=== PATIENT | female | born 1995 | race Caucasian/White ===

== ENCOUNTER 2019-07-11 23:03 | Emergency (ER) | payer MEDICAID ==
[~2019-07-11] VITALS: Ht 170.2 cm; Wt 89.5 kg
[2019-07-11 23:10] VITALS: BP 133/90; Ht 170.2 cm; Wt 89.5 kg
[2019-07-11] MEDS ORDERED: ADOXA100 MG PO (23:11)
[2019-07-11] MEDS ORDERED: STROMECTOL 3 MG3 MG PO (23:40)
[2019-07-11] MEDS ORDERED: ZOFRAN ODT4 MG/UDTAB PO (23:41)
== END 2019-07-12 00:01 | disposition home or self-care (01) ==
LOC: D.ER 23:03
DX: B86 Scabies (principal)

== ENCOUNTER 2019-07-15 03:22 | Emergency (ER) | payer MEDICAID ==
[~2019-07-15] VITALS: Ht 170.2 cm; Wt 89.5 kg
[~2019-07-15 03:22] MED LIST: ADOXA100 MG PO; STROMECTOL 3 MG3 MG PO; ZOFRAN ODT4 MG/UDTAB PO
[2019-07-15 03:26] VITALS: Ht 170.2 cm; Wt 89.5 kg
[2019-07-15 04:14] LABS: BASOPHILS 0.1 % (0-2); EOSINOPHILS 1.9 % (0-7); HEMATOCRIT 38.6 % (36.0-48.0); HEMOGLOBIN 13.2 g/dL (12-16); IMMATURE GRANULOCYTES 0.3 % (0-5); LYMPHOCYTES 17.3 % (15-50); MCH 28.4 pg (26.0-34.0); MCHC 34.2 g/dL (31.0-37.0); MEAN PLATELET VOLUME 10.6 fL (7.4-10.4); MONOCYTES 10.7 % (2-11); NEUTROPHILS 69.7 % (40-80); PLATELET COUNT 189 10x3/uL (130-400); RBC 4.65 10x6/uL (4.00-5.40); WBC 8.8 10x3/uL (4.8-10.8)
[2019-07-15 04:28] LABS: ALBUMIN 4.4 g/dL (3.4-5.0); ANION GAP 14.6 mmol/L (8-16); BILIRUBIN - TOTAL 0.55 mg/dL (0.2-1.3); CARBON DIOXIDE 26.3 mmol/L (21.0-32.0); CREATININE - SERUM 1.2 mg/dL (0.6-1.3); PROTEIN - SERUM 6.9 g/dL (6.4-8.2)
[2019-07-15 04:30] LABS: POTASSIUM - SERUM 2.9 mmol/L (3.5-5.1)
[2019-07-15 04:40] LABS: UDS - AMPHET POSITIVE QUAL (NEGATIVE); UDS - BARB NEGATIVE QUAL (NEGATIVE); UDS - BENZO NEGATIVE QUAL (NEGATIVE); UDS - COCAINE NEGATIVE QUAL (NEGATIVE); UDS - OPIATE NEGATIVE QUAL (NEGATIVE); UDS - PCP NEGATIVE QUAL (NEGATIVE); UDS - THC NEGATIVE QUAL (NEGATIVE)
[2019-07-15 04:43] LABS: APPEARANCE HAZY (CLEAR); BILIRUBIN NEGATIVE (NEGATIVE); COLOR DK YELLOW (YELLOW); GLUCOSE NEGATIVE (NEGATIVE); KETONE MODERATE mg/dL (NEGATIVE); NITRITE NEGATIVE (NEGATIVE); PROTEIN 1+ mg/dL (NEGATIVE); SPECIFIC GRAVITY 1.025 (1.005-1.020); UROBILINOGEN NORMAL (NORMAL)
[2019-07-15 04:45] LABS: BACTERIA FEW /hpf (NEGATIVE); EPITHELIAL CELLS 0-5 /hpf (0-5); HYALINE CAST 0-5 /lpf (NONE SEEN); MUCUS <1+ /lpf (NONE SEEN); RED CELLS - URINE 0-5 /hpf (0-5); WHITE CELLS - URINE 0-5 /hpf (NEGATIVE)
[2019-07-15 05:33] LABS: CKMB 10.7 U/L (0.0-3.6); CREATINE KINASE 1526 UL (21-215)
[2019-07-15 09:07] VITALS: BP 110/84
== END 2019-07-15 09:08 | disposition home or self-care (01) ==
LOC: D.ER 03:22
PROVIDERS: Family Medicine
DX: F15.10 Other stimulant abuse, uncomplicated (principal); E87.6 Hypokalemia; M62.82 Rhabdomyolysis; F17.200 Nicotine dependence, unspecified, uncomplicated

== ENCOUNTER 2019-08-22 07:00 | Emergency (ER) | payer MEDICAID ==
[~2019-08-22] VITALS: Ht 170.2 cm; Wt 90.0 kg
[2019-08-22 07:02] VITALS: BP 128/86; Ht 170.2 cm; Wt 90.0 kg
[2019-08-22] MEDS ORDERED: ANTIDEPRESSANT (07:03)
[2019-08-22] MEDS ORDERED: HYDROCODON-ACE1 EAC7 PO (08:29)
== END 2019-08-22 10:36 | disposition home or self-care (01) ==
LOC: D.ER 07:00
DX: M54.2 Cervicalgia (principal); V43.52XA Car driver injured in collision with other type car in traffic accident, initial encounter; Y93.9 Activity, unspecified; Y92.9 Unspecified place or not applicable; M54.5 Low back pain

== ENCOUNTER 2019-10-19 13:32 | Emergency (ER) | payer MEDICAID ==
[~2019-10-19 13:32] MED LIST changes: +ANTIDEPRESSANT; +HYDROCODON-ACE1 EAC7 PO
[2019-10-19 13:41] VITALS: Ht 170.2 cm
[2019-10-19 14:13] LABS: BASOPHILS 0.1 % (0-2); EOSINOPHILS 2.5 % (0-7); HEMATOCRIT 39.4 % (36.0-48.0); HEMOGLOBIN 13.2 g/dL (12-16); IMMATURE GRANULOCYTES 0.2 % (0-5); LYMPHOCYTES 21.1 % (15-50); MCH 28.9 pg (26.0-34.0); MCHC 33.5 g/dL (31.0-37.0); MCV 86.2 fL (80.0-100.0); MEAN PLATELET VOLUME 10.2 fL (7.4-10.4); MONOCYTES 7.6 % (2-11); NEUTROPHILS 68.5 % (40-80); PLATELET COUNT 251 10x3/uL (130-400); RBC 4.57 10x6/uL (4.00-5.40); RDW 12.9 % (11.5-14.5); WBC 9.2 10x3/uL (4.8-10.8)
[2019-10-19 14:23] LABS: APTT 30.8 SECONDS (22.8-39.4); PROTIME 13.1 SECONDS (11.6-15.0)
[2019-10-19 14:25] LABS: CALC OSMOLALITY 281 mosm/kg (275-300); CALCIUM 9.1 mg/dL (8.5-10.1); CARBON DIOXIDE 29.2 mmol/L (21.0-32.0); CHLORIDE - SERUM 105 mmol/L (98-107); CREATININE - SERUM 0.9 mg/dL (0.6-1.3); POTASSIUM - SERUM 4.5 mmol/L (3.5-5.1); SODIUM 142 mmol/L (136-145); UREA NITROGEN 10 mg/dL (7-18); eGFR NON AFRICAN AMERICAN 83 mL/min (90-120)
[2019-10-19 14:26] LABS: GLUCOSE 105 mg/dL (74-106)
[2019-10-19 14:41] LABS: ALKALINE PHOSPHATASE 73 U/L (46-116); ALT (SGPT) 30 U/L (10-68); BILIRUBIN - TOTAL 0.21 mg/dL (0.2-1.3); CKMB 1.2 U/L (0.0-3.6); CREATINE KINASE 114 UL (21-215); MAGNESIUM - SERUM 1.9 mg/dL (1.8-2.4)
[2019-10-19 14:43] LABS: TROPONIN-I < 0.017 ng/mL (0.000-0.060)
[2019-10-19 14:54] LABS: APPEARANCE CLOUDY (CLEAR); BILIRUBIN NEGATIVE (NEGATIVE); COLOR YELLOW (YELLOW); GLUCOSE NEGATIVE (NEGATIVE); KETONE NEGATIVE (NEGATIVE); NITRITE NEGATIVE (NEGATIVE); PROTEIN TRACE mg/dL (NEGATIVE); UROBILINOGEN NORMAL (NORMAL)
[2019-10-19 14:55] LABS: AMORPHOUS SEDIMENT >1+ /lpf (NONE SEEN); BACTERIA MANY /hpf (NEGATIVE); GRANULAR CAST RARE /lpf (NONE SEEN); HYALINE CAST 0-5 /lpf (NONE SEEN); MUCUS >1+ /lpf (NONE SEEN)
[2019-10-19 15:03] LABS: UDS - AMPHET POSITIVE QUAL (NEGATIVE); UDS - BARB NEGATIVE QUAL (NEGATIVE); UDS - BENZO NEGATIVE QUAL (NEGATIVE); UDS - COCAINE NEGATIVE QUAL (NEGATIVE); UDS - OPIATE NEGATIVE QUAL (NEGATIVE); UDS - PCP NEGATIVE QUAL (NEGATIVE); UDS - THC POSITIVE QUAL (NEGATIVE)
[2019-10-19 16:03] LABS: HCG URINE NEGATIVE (NEGATIVE)
[2019-10-19] MEDS ORDERED: OMNICEF300 MG PO (18:19)
[2019-10-19 18:40] VITALS: BP 122/84
== END 2019-10-19 18:42 | disposition home or self-care (01) ==
LOC: D.ER 13:32
PROVIDERS: Family Medicine
DX: F15.10 Other stimulant abuse, uncomplicated (principal); N39.0 Urinary tract infection, site not specified